=== PATIENT | female | born 1980 | race Two or more races ===

== ENCOUNTER 2017-04-03 20:47 | Emergency (ER) | payer MEDICAID ==
[~2017-04-03] VITALS: Ht 157.5 cm; Wt 98.0 kg
[2017-04-03 21:29] VITALS: BP 144/83
[2017-04-03 22:26] LABS: Urine Bilirubin Negative (Negative); Urine Blood Negative /uL (Negative); Urine Color Yellow (Yellow); Urine Glucose Normal (Normal); Urine Ketone Negative (Negative); Urine Nitrite Negative (Negative); Urine RBC <1 /hpf (0 - 4); Urine Squamous Epithelial Cell FEW /hpf (<5); Urine Urobilinogen Normal (Negative)
== END 2017-04-04 00:58 | disposition left against medical advice (07) ==
LOC: ER 20:50
DX: R10.2 Pelvic and perineal pain (principal); Z53.21 Procedure and treatment not carried out due to patient leaving prior to being seen by health care provider
CPT/HCPCS: 36415; 81001; 84702